=== PATIENT | female | born 1960 | race Hispanic/Latino ===

== ENCOUNTER 2021-06-18 10:48 | Emergency (ER) | payer OTHER ==
[~2021-06-18] VITALS: Ht 149.9 cm; Wt 97.1 kg
[~2021-06-18 10:48] MED LIST: GLIMEPIRIDE2 MG PO; METFORMIN HCL500 MG PO; VASOTEC10 MG PO
[2021-06-18] MEDS ORDERED: HYDROCODON-ACE1 EA11 PO (11:41)
[2021-06-18] MEDS ORDERED: PREDNISONE20 MG PO (11:41)
== END 2021-06-18 12:04 | disposition home or self-care (01) ==
LOC: ER 11:25
DX: M54.6 Pain in thoracic spine (principal); M54.32 Sciatica, left side; M54.31 Sciatica, right side; E11.9 Type 2 diabetes mellitus without complications; E78.00 Pure hypercholesterolemia, unspecified; J45.909 Unspecified asthma, uncomplicated
CPT/HCPCS: 99283

== ENCOUNTER 2021-07-02 14:05 | Emergency (ER) | payer OTHER ==
[~2021-07-02] VITALS: Ht 149.9 cm; Wt 97.1 kg
[~2021-07-02 14:05] MED LIST changes: +HYDROCODON-ACE1 EA11 PO; +PREDNISONE20 MG PO
[2021-07-02 14:43] LABS: BASOPHILS % 0.5 % (0.0-1.0); EOSINOPHILS % 0.7 % (0.0-6.0); HEMATOCRIT 45.5 % (34.2-44.1); HEMOGLOBIN 14.9 g/dL (12.0-16.0); LYMPHOCYTES # (AUTO) 1.1 (1.0-3.2); LYMPHOCYTES % 19.1 % (18.0-39.1); MEAN CORPUSCULAR HEMOGLOBIN 30.2 pg (28-32); MEAN CORPUSCULAR HGB CONC 32.7 g/dL (31-35); MEAN CORPUSCULAR VOLUME 92.1 fL (81-99); MONOCYTES # (AUTO) 0.5 (0.2-0.8); MONOCYTES % 8.9 % (4.4-11.3); NEUTROPHILS # (AUTO) 3.8 (2.1-6.9); NEUTROPHILS % 69.9 % (38.7-80.0); PLATELET COUNT 135 x10e3/uL (140-360); RED BLOOD COUNT 4.94 x10e6/uL (3.6-5.1); RED CELL DISTRIBUTION WIDTH 14.4 % (11.7-14.4)
[2021-07-02 15:08] LABS: ANION GAP 15.4 mmol/L (8-16); CALCIUM 8.9 mg/dL (8.4-10.2); CREATININE, SERUM 0.8 mg/dL (0.57-1.11); POTASSIUM 4.4 mmol/L (3.5-5.1)
[2021-07-02 17:15] VITALS: BP 162/86
[2021-07-02] MEDS ORDERED: IOPAMIDOL 370 MG/ML 100 ML INFUS..BTL INJ ONE (21:54)
[2021-07-02] MEDS ORDERED: SODIUM CHLORIDE 0.9% 100 ML ONE (21:54)
== END 2021-07-02 17:16 | disposition home or self-care (01) ==
LOC: ER 14:42
DX: M54.32 Sciatica, left side (principal); Z20.822 Contact with and (suspected) exposure to COVID-19; E11.65 Type 2 diabetes mellitus with hyperglycemia; E78.5 Hyperlipidemia, unspecified; E78.00 Pure hypercholesterolemia, unspecified; M54.9 Dorsalgia, unspecified; G89.29 Other chronic pain
CPT/HCPCS: 36415; 71045; 75635; 80048; 84484; 85025; 93005; 99284; U0002; J7050; Q9967

== ENCOUNTER 2023-10-16 18:21 | Emergency (ER) | payer OTHER ==
[~2023-10-16] VITALS: Ht 149.9 cm; Wt 97.5 kg
[~2023-10-16 18:21] MED LIST changes: +CEPHALEXIN500 MG PO; +DOXYCYCLINE HY100 MG PO
[2023-10-16 19:07] LABS: BASOPHILS % 0.2 % (0.0-1.0); EOSINOPHILS # (AUTO) 0.1 (0.0-0.4); EOSINOPHILS % 2.7 % (0.0-6.0); HEMATOCRIT 39.2 % (34.2-44.1); HEMOGLOBIN 12.1 g/dL (12.0-16.0); LYMPHOCYTES % 20.2 % (18.0-39.1); MEAN CORPUSCULAR HGB CONC 30.9 g/dL (31-35); MONOCYTES # (AUTO) 0.4 (0.2-0.8); MONOCYTES % 8.3 % (4.4-11.3); NEUTROPHILS # (AUTO) 3.3 (2.1-6.9); PLATELET COUNT 139 x10e3/uL (140-360); RED BLOOD COUNT 4.17 x10e6/uL (3.6-5.1); RED CELL DISTRIBUTION WIDTH 14.4 % (11.7-14.4)
[2023-10-16 19:21] LABS: ANION GAP 13.8 mmol/L (8-16); CREATININE, SERUM 1.22 mg/dL (0.57-1.11); POTASSIUM 4.8 mmol/L (3.5-5.1)
[2023-10-16 19:28] VITALS: PULSE 75; RESP 16; TEMP 98.4
[2023-10-16] MEDS ORDERED: BACTRIM 400-801 EACH PO (19:58)
[2023-10-16 20:12] VITALS: BP 156/97; PULSE 75; RESP 16; TEMP 98.4; O2SAT 97
[2023-10-30] MEDS ORDERED: TOPIRAMATE25 MG PO (16:17)
[2023-10-30] MEDS ORDERED: CYMBALTA30 MG PO (16:17)
[2023-10-30] MEDS ORDERED: LOSARTAN POTASS25 MG PO (16:17)
[2023-10-30] MEDS ORDERED: CLOTRIMAZOLE15 GM TOP (16:17)
[2023-10-30] MEDS ORDERED: BUDESONIDE0.5 MG/2 M NEB (16:17)
[2023-10-30] MEDS ORDERED: ABILIFY5 MG PO (16:17)
[2023-10-30] MEDS ORDERED: OMEPRAZOLE40 MG PO (16:17)
[2023-10-30] MEDS ORDERED: CARAFATE1 GM/10 ML PO (16:17)
[2023-10-30] MEDS ORDERED: METHOCARBAMOL750 MG PO (16:17)
[2023-10-30] MEDS ORDERED: LYRICA150 MG PO (16:17)
[2023-10-30] MEDS ORDERED: ALBUTEROL0.63 MG/3 NEB (16:17)
[2023-10-30] MEDS ORDERED: GABAPENTIN300 MG PO (16:17)
[2023-10-30] MEDS ORDERED: ALENDRONATE SOD70 MG PO (16:17)
[2023-10-30] MEDS ORDERED: MONTELUKAST SOD10 MG PO (16:17)
[2023-10-30] MEDS ORDERED: MOUNJARO2.5 MG/0.5 (16:17)
[2023-10-30] MEDS ORDERED: ROSUVASTATIN CA20 MG PO (16:17)
[2023-10-30] MEDS ORDERED: MELOXICAM7.5 MG PO (16:19)
== END 2023-10-16 20:32 | disposition home or self-care (01) ==
LOC: ER 18:28
DX: S81.801A Unspecified open wound, right lower leg, initial encounter (principal); E11.9 Type 2 diabetes mellitus without complications; E78.5 Hyperlipidemia, unspecified; J45.909 Unspecified asthma, uncomplicated; M85.80 Other specified disorders of bone density and structure, unspecified site
CPT/HCPCS: 36415; 80048; 85025; 99283; J2543